=== PATIENT | female | born 1970 | race Caucasian/White ===

== ENCOUNTER 2020-01-26 08:35 | Emergency (ER) | payer OTHER ==
[~2020-01-26] VITALS: Ht 165.1 cm; Wt 86.2 kg
[2020-01-26] MEDS ORDERED: VITAMIN D31250 MC1 PO (08:52)
[2020-01-26] MEDS ORDERED: VITAMIN C500 M1 PO (08:53)
[2020-01-26 09:11] LABS: INFLUENZA A ANTIGEN Negative (Negative); INFLUENZA B ANTIGEN Negative (Negative)
[2020-01-26 09:29] VITALS: BP 123/78
== END 2020-01-26 09:31 | disposition home or self-care (01) ==
LOC: M.ERS 08:35
PROVIDERS: Emergency Medicine Emergency Medical Services
DX: B34.9 Viral infection, unspecified (principal); Z20.828 Contact with and (suspected) exposure to other viral communicable diseases; J45.909 Unspecified asthma, uncomplicated; Z88.2 Allergy status to sulfonamides; Z88.8 Allergy status to other drugs, medicaments and biological substances; Z90.710 Acquired absence of both cervix and uterus; Z98.51 Tubal ligation status